=== PATIENT | female | born 1995 | race Caucasian/White ===

== ENCOUNTER → 2018-03-04 14:21 | Observation (INO) ==
[2018-03-04 13:02] LABS: Bilirubin,Urine Negative (Negative); Blood,Urine Moderate (Negative); Clarity,Urine Cloudy (Clear); Color,Urine Yellow (Yellow); Glucose,Urine (UA) Normal (Normal); Ketones,Urine Negative (Negative); Leukocyte Esterase,Urine Trace (Negative); Nitrite,Urine Negative (Negative); PH,Urine 7.5 pH Units (5.0-8.0); Protein,Urine Negative (Neg-Trace); Specific Gravity,Urine < 1.005 (1.010-1.025); Urobilinogen,Urine Normal (Normal)
[2018-03-04 13:03] LABS: Bacteria,Urine Few per hpf (None-Few); Hyaline Casts,Urine None Seen per lpf (None-Few); Squamous Epithelial Cell,Urine Many per lpf (None-Few)
[2018-03-04 13:29] LABS: Amphetamine Screen,Urine Negative ng/mL (Cutoff=1000); Barbiturate Screen,Urine Negative ng/mL (Cutoff=200); Benzodiazepines Screen,Urine Negative ng/mL (Cutoff=200); Cannabinoid Screen,Urine Positive ng/mL (Cutoff = 50); Cocaine Screen,Urine Negative ng/mL (Cutoff= 300); Opiate Screen,Urine Negative ng/mL (Cutoff=300); Phencyclidine Screen,Urine Negative ng/mL (Cutoff=25)
--- NOTE | 2018-03-04 13:48 | Discharge Summary ---
Date of Encounter: 03/04/18 Time of Encounter: 13:46 - Discharge Diagnosis (1) 23 weeks gestation of Priority: Primary Status: Acute Comments: Admitted to observation for complaint of abdominal pain since yesterday. (2) Abdominal pain affecting Priority: Secondary Status: Acute Comments: Contraction monitoring, Urinalysis sample collected SSE completed Cervix closed/thick/high (3) Vaginal discharge during Priority: Secondary Status: Acute Comments: Moderate amount of white creamy vaginal discharge noted on speculum exam. Small amount of thick white discharge adherent to vaginal hernández Vaginosis panel collected Qualifiers: Trimester: second trimester Qualified Code(s): O26.892 - Other specified related conditions, second trimester; N89.8 - Other specified noninflammatory disorders of vagina - Discharge Medications Home Medications: Vits #90/Iron Fum/FA [ Formula Tablet] 1 each PO DAILY 01/04/18 [History] Ondansetron HCl [Zofran] 1 tab PO PRN PRN 03/04/18 [History] Allergies/Adverse Reactions: Allergy/AdvReac Type Severity Reaction Status Date / Time No Known Allergies Allergy Verified 01/04/18 20:43 Data Procedures and tests throughout hospitalization: Laboratory Tests 03/04/18 03/04/18 12:40 12:40 Urine Color Yellow Urine Clarity Cloudy A Urine pH 7.5 Ur Specific [place] < 1.005 L Urine Protein Negative Urine Glucose (UA) Normal Urine Ketones Negative Urine Blood Moderate H Urine Nitrite Negative Urine Bilirubin Negative Urine Urobilinogen Normal Ur Leukocyte Esterase Trace H Urine Microscopic RBC 5-15 H Urine Microscopic WBC 5-15 H Ur Squamous Epith Cells Many H Urine Bacteria Few Hyaline Casts None Seen Ur Culture Indicated? NO. A Urine Opiates Screen Negative Ur Barbiturates Screen Negative Ur Phencyclidine Scrn Negative Ur Amphetamines Screen Negative U Benzodiazepines Scrn Negative Urine Cocaine Screen Negative U Marijuana (THC) Screen Positive H Ur Drug Screen Interp See Below Labs on day of discharge: Labs from last 24 hours 03/04/18 03/04/18 12:40 12:40 Urine Color Yellow Urine Clarity Cloudy A Urine pH 7.5 Ur Specific [place] < 1.005 L Urine Protein Negative Urine Glucose (UA) Normal Urine Ketones Negative Urine Blood Moderate H Urine Nitrite Negative Urine Bilirubin Negative Urine Urobilinogen Normal Ur Leukocyte Esterase Trace H Urine Microscopic RBC 5-15 H Urine Microscopic WBC 5-15 H Ur Squamous Epith Cells Many H Urine Bacteria Few Hyaline Casts None Seen Ur Culture Indicated? NO. A Urine Opiates Screen Negative Ur Barbiturates Screen Negative Ur Phencyclidine Scrn Negative Ur Amphetamines Screen Negative U Benzodiazepines Scrn Negative Urine Cocaine Screen Negative U Marijuana (THC) Screen Positive H Ur Drug Screen Interp See Below Date of admission: 03/04/18 12:35 Discharging clinician: Jesenia Gustafson Anticipated date of discharge: 03/04/18 - Patient Status Disposition: Home, Self-Care Condition: Good Functional capacity at discharge: independent ambulation Overall status at discharge: patient is progressing back to baseline - Discharge Instructions - Diet and Activity Activity: resume usual activities as tolerated Diet: regular diet Hospital Course PAYROLL AND BENEFITS COORDINATOR Hospital course: Akhil reports to the hospital today with complaint of abdominal pain and cramping since yesterday. States the pain was much worse yesterday and she has also experienced some nausea, vomiting, and diarrhea. She reports history of a previous kidney stone before . Patient states this pain does not feel the same as when she had the kidney stone. She does report that she passed that kidney stone without any intervention. Moderate amount of blood noted on UA result so SSE performed to rule out vaginal bleeding. No bleeding noted initially, then scant amount visualized on left vaginal wall, most likely from speculum irritation. Vaginosis panel was collected to rule out vaginal infection. Patient states the cramping pain is much better today but wanted to make sure she was not in labor at this early gestation. Cervix closed/thick/hig h. Periods of high frequency, low amplitude uterine activity noted on toco monitor. Will send patient home to follow up with her OB physician for routine visit. Will call patient if vaginosis panel returns positive and she needs treatment. Time Attestation: Total time spent providing and/or coordinating discharge services: Time Spent: Less than 30 minutes Exam - Constitutional General appearance IM: A&O X 3, pleasant, no acute distress, answers questions appropriately - Respiratory Respiratory exam: Present: CTAB - Cardiovascular Cardiovascular exam IM: Present: RRR, +S1, +S2 - GI/Abdominal GI/Abdominal exam IM: normal bowel sounds - Rectal Rectal exam: deferred - Extremities Exam Extremities exam IM: Present: full ROM, normal capillary refill, normal inspection - Neurological Exam Neurological exam: alert, normal gait, oriented X3 - VTE Reasons for not Prescribing Prophylaxis: Treatment not Indicated - Low risk for VTE
[2018-03-04 14:26] LABS: Candida DNA Not Detected (Not Detect); Gardnerella DNA Not Detected (Not Detect); Trichomonas DNA Not Detected (Not Detect)
== END | disposition home or self-care (01) ==
LOC: 1NENULAB
PROVIDERS: ADMIT Registered Nurse; ATTEND Registered Nurse